=== PATIENT | male | born 1950 | race Two or more races ===

== ENCOUNTER 2017-03-01 22:53 | Inpatient (IN) | payer MEDICARE, OTHER ==
[~2017-03-01] VITALS: Ht 167.6 cm; Wt 94.8 kg
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
--- NOTE | 2017-03-01 23:11 | NUR ---
RADIOLOGY AT BEDSIDE RIGHT SHOULDER XR
--- NOTE | 2017-03-02 00:11 | NUR ---
ms bed 204.2
--- NOTE | 2017-03-02 00:25 | NUR ---
SANDER URBINA (GIRLFRIEND) [phone]
[2017-03-02 00:26] LABS: BASOPHILS % (AUTO) 0.2 % (0.0-2.0); EOSINOPHILS # (AUTO) 0.1 /CMM (0.0-0.7); EOSINOPHILS % (AUTO) 1.3 % (0.0-6.0); HEMATOCRIT 44 % (39-51); HEMOGLOBIN 14.7 g/dL (13.5-17.5); LYMPHOCYTES # (AUTO) 3.6 /CMM (0.8-4.8); LYMPHOCYTES % (AUTO) 32.9 % (20.0-44.0); MEAN CORPUSCULAR HEMOGLOBIN 30 PG (26.0-33.0); MEAN CORPUSCULAR HGB CONC 34 g/dl (31.0-36.0); MEAN CORPUSCULAR VOLUME 89 fL (80-96); MONOCYTES # (AUTO) 0.6 /CMM (0.1-1.30); MONOCYTES % (AUTO) 5.7 % (2.0-12.0); NEUTROPHILS # (AUTO) 6.6 /CMM (1.8-8.9); NEUTROPHILS % (AUTO) 59.9 % (43.0-81.0); PLATELET COUNT (AUTO) 261 /CMM (150-450); RDW COEFFICIENT OF VARIATION 14.3 (11.5-15.0); RED BLOOD CELL COUNT(AUTO) 4.93 MIL/uL (4.5-6.0); WHITE BLOOD COUNT (AUTO) 10.9 K/uL (4.3-11.0)
[2017-03-02] MEDS ORDERED: MORPHINE SULFATE INJ 10 MG/ML DISP.SYRIN ONE (00:28)
[2017-03-02] MEDS ORDERED: ONDANSETRON HCL/PF 4 MG/2 ML VIAL ONE ×2 (00:28→05:42)
[2017-03-02] MEDS ORDERED: MORPHINE SULFATE INJ 2 MG/ML DISP.SYRIN IV ONE (00:30)
[2017-03-02] MEDS ORDERED: ONDANSETRON HCL/PF 4 MG/2 ML VIAL IV ONE (00:30)
--- NOTE | 2017-03-02 00:35 | NUR ---
REPORT GIVEN TO CESAR TAPIA FOR MS BED 204-2
[2017-03-02 00:37] LABS: CALCIUM, SERUM 8.9 mg/dL (8.5-10.1); POTASSIUM 3.9 mmol/L (3.5-5.1)
[2017-03-02 00:38] LABS: INR 0.89 (0.87-1.13); PROTHROMBIN TIME 9.2 SECS (9.5-12.7)
--- NOTE | 2017-03-02 00:49 | NUR ---
PT TRANSFERRED TO [place] BED 204-2 VIA [facility].
[2017-03-02 00:50] VITALS: BP 156/88
[2017-03-02] MEDS ORDERED: MORPHINE SULFATE INJ 4 MG/ML DISP.SYRIN ONE ×2 (01:13→05:41)
[2017-03-02] MEDS: MORPHINE SULFATE INJ 2 MG/ML DISP.SYRIN IV PRN ×2 (01:17→05:45)
[2017-03-02] MEDS ORDERED: ZOLPIDEM TARTRATE 5 MG TABLET ONE (01:27)
[2017-03-02] MEDS ORDERED: MAGNESIUM HYDROXIDE 30 ML UDC PO PRN (01:30)
[2017-03-02] MEDS ORDERED: ACETAMINOPHEN 325 MG TABLET PO PRN (01:30)
[2017-03-02] MEDS ORDERED: ZOLPIDEM TARTRATE 5 MG TABLET PO PRN (01:30)
[2017-03-02] MEDS ORDERED: MAG HYDROX/AL HYDROX/SIMETH 30 ML UDC PO PRN (01:30)
[2017-03-02] MEDS: ONDANSETRON HCL/PF 4 MG/2 ML VIAL IVP PRN ×2 (05:44→20:08)
--- NOTE | 2017-03-02 06:30 | NUR ---
MS RN NOTES AWAKE & RESPONSIVE. NOT IN ANY DISTRESS. NO SOB NOTED. DENIES ANY PAIN OR DISCOMFORT AT THIS TIME. WITH IV-HL PATENT & INTACT. MONITORED ACCORDINGLY. CALL LIGHT WITHIN REACH. BED IN LOWEST POSITION. SR UP X 2 FOR SAFETY. WILL ENDORSE TO NEXT SHIFT.
--- NOTE | 2017-03-02 07:27 | NUR ---
MS RN OPENING NOTES RECEIVED PATIENT IN BED RESTING, RESPONSIVE, A/OX4. NO ACUTE DISTRESS, NO SOB NOTED. DENIES ANY PAIN OR DISCOMFORT. IV SITE INTACT AND PATENT. KEPT PATIENT SAFE AND COMFORTABLE. BED IN LOW POSITION, LOCKED, SIDERAILS UPX2, CALL LIGHT IN REACH. WILL CONTINUE TO MONITOR ACCORDINGLY.
[2017-03-02 07:33] LABS: MAGNESIUM 2.4 mg/dL (1.8-2.4); PHOSPHORUS 4.2 mg/dL (2.5-4.9)
[2017-03-02 08:00] VITALS: BP 134/73
[2017-03-02] MEDS ORDERED: MORPHINE SULFATE INJ 10 MG/ML DISP.SYRIN IV PRN (08:13)
--- NOTE | 2017-03-02 10:30 | NUR ---
RN NOTES FOLLOWED UP WITH COURY FOR ORTHO CONSULT.
--- NOTE | 2017-03-02 10:51 | NUR ---
RN NOTES DR MAYFIELD ON BEDSIDE. NEW ORDERS NOTED AND CARRIED OUT. WILL CONTINUE TO MONITOR.
[2017-03-02] MEDS ORDERED: HYDROCODONE/APAP 10/325MG 1 EA TABLET PO PRN (11:00)
[2017-03-02] MEDS: IV D5/0.45 NACL 1,000 ML IV PRN (11:09)
[2017-03-02] MEDS: HYDROCODONE/APAP 5/325MG 1 EACH TABLET PO PRN (11:22)
--- NOTE | 2017-03-02 13:27 | NUR ---
RN NOTES NISHA MCPHERSON ON BEDSIDE FOR ORTHO CONSULT. NEW ORDERS NOTED AND CARRIED OUT.
[2017-03-02] MEDS: HYDROMORPHONE 1 MG/1 ML DISP.SYRIN IV PRN ×2 (15:53→20:08)
[2017-03-02] MEDS ORDERED: ANESTHESIA TRAY IN PYXIS 1 EA TRAY MC ONE (16:30)
--- NOTE | 2017-03-02 17:01 | NUR ---
RN NOTES BROUGHT PATIENT TO OR ACCOMPANIED BY OR NURSE FOR CLOSE REDUCTION OF RIGHT SHOULDER DISLOCATION.
[2017-03-02] MEDS ORDERED: SUCCINYLCHOLINE CHLORIDE 20 MG/ML VIAL ONE (18:01)
[2017-03-02 18:50] VITALS: BP 142/85
--- NOTE | 2017-03-02 18:50 | NUR ---
RN NOTES PATIENT CAME BACK FROM OR. PATIENT IN STABLE CONDITION. NEW ORDERS NOTED AND CARRIED OUT. WILL CONTINUE TO MONITOR ACCORDINGLY.
--- NOTE | 2017-03-02 19:08 | NUR ---
RN CLOSING NOTES PATIENT IN BED RESTING. S/P CLOSE REDUCTION OF RIGHT SHOULDER, IMMOBILIZER IN PLACE. NO ACUTE DISTRESS, NO SOB NOTED. DENIES PAIN OR DISCOMFORT. IV SITE INTACT AND PATENT. KEPT PATIENT SAFE AND COMFORTABLE. BED IN LOW POSITION, LOCKED, SIDERAILS UPX2, HOB ELEVATED. CALL LIGHT IN REACH. ENDORSED TO NIGHT RN FOR TERRI.
[2017-03-02 20:00] VITALS: BP 145/92
[2017-03-03] MEDS: IV D5/0.45 NACL 1,000 ML IV PRN (02:28)
--- NOTE | 2017-03-03 06:14 | NUR ---
MS RN NOTES AWAKE & RESPONSIVE. NOT IN ANY DISTRESS. NO SOB NOTED. DENIES ANY PAIN OR DISCOMFORT AT THIS TIME. WITH IVF INFUSING WELL. MONITORED ACCORDINGLY. CALL LIGHT WITHIN REACH. BED IN LOWEST POSITION. SR UP X 2 FOR SAFETY. WILL ENDORSE TO NEXT SHIFT.
[2017-03-03 06:16] LABS: BASOPHILS % (AUTO) 0.3 % (0.0-2.0); EOSINOPHILS # (AUTO) 0.2 /CMM (0.0-0.7); EOSINOPHILS % (AUTO) 2.2 % (0.0-6.0); HEMATOCRIT 40 % (39-51); HEMOGLOBIN 13.5 g/dL (13.5-17.5); LYMPHOCYTES # (AUTO) 2.5 /CMM (0.8-4.8); LYMPHOCYTES % (AUTO) 28.1 % (20.0-44.0); MEAN CORPUSCULAR HEMOGLOBIN 30 PG (26.0-33.0); MEAN CORPUSCULAR HGB CONC 34 g/dl (31.0-36.0); MEAN CORPUSCULAR VOLUME 89 fL (80-96); MONOCYTES # (AUTO) 0.7 /CMM (0.1-1.30); MONOCYTES % (AUTO) 7.9 % (2.0-12.0); NEUTROPHILS # (AUTO) 5.5 /CMM (1.8-8.9); NEUTROPHILS % (AUTO) 61.5 % (43.0-81.0); PLATELET COUNT (AUTO) 236 /CMM (150-450); RDW COEFFICIENT OF VARIATION 14.8 (11.5-15.0); RED BLOOD CELL COUNT(AUTO) 4.46 MIL/uL (4.5-6.0); WHITE BLOOD COUNT (AUTO) 8.9 K/uL (4.3-11.0)
[2017-03-03 06:33] LABS: CALCIUM, SERUM 8.4 mg/dL (8.5-10.1); CREATININE 0.9 mg/dL (0.6-1.3); POTASSIUM 4.2 mmol/L (3.5-5.1)
--- NOTE | 2017-03-03 07:10 | NUR ---
MS RN OPENING NOTES RECEIVED PT FROM NIGHTSHIFT NURSE IN STABLE CONDITION. PT IS A/O X4. NO SOB OR SIGNS OF DISTRESS NOTED. BREATHING IS EVEN AND UNLABORED. PT DENIES ANY PAIN TO RIGHT UPPER EXTREMITY AT THIS TIME. PERIPHERAL IV PRESENT ON LEFT AC 18G INFUSING D5 1/2 NS @ 75ML/HR. PT IS TOLERATING INFUSION WELL. NO REDNESS OR SIGNS OF INFILTRATION NOTED. BED IN LOW LOCKED POSITION, SIDE RAILS UP X2, CALL LIGHT WITHIN REACH. WILL CONTINUE TO MONITOR
[2017-03-03 08:00] VITALS: BP 135/76
[2017-03-03] MEDS: HYDROCODONE/APAP 5/325MG 1 EACH TABLET PO PRN (15:18)
--- NOTE | 2017-03-03 15:56 | NUR ---
MS RN DOCUMENT IMPROVEMENT SPECIALIST NOTE PT WAS DISCHARGE FROM UNIT TO [facility] VIA AMBULANCE TRANSPORT IN STABLE CONDITION. ALL DUE MEDS GIVEN AND ORDERS CARRIED OUT ACCORDINGLY. ALL DISCHARGE INSTRUCTIONS DISCUSSED IN DETAIL WITH PT. PT VERBALIZED UNDERSTANDING OF INSTRUCTIONS AND SIGNED AL PAPERWORK INCLUDING BELONGINGS FORM. HE LEFT WITH ALL BELONGINGS IN HAND. IMMOBILIZER REMAINS ON AT TIME OF DISCHARGE.
== END 2017-03-03 15:57 | DRG 563 ==
LOC: ER 22:54 → MEDSG2 03-02 00:34 → MED 03-02 17:22
PROVIDERS: ADMIT Nurse Practitioner Acute Care; ATTEND Internal Medicine
PROC: 0PSCXZZ Reposition Right Humeral Head, External Approach (ICD-10-PCS; principal; 2017-03-02 17:00)
DX: S42.251A Displaced fracture of greater tuberosity of right humerus, initial encounter for closed fracture (principal); M54.30 Sciatica, unspecified side; W19.XXXA Unspecified fall, initial encounter; Z83.3 Family history of diabetes mellitus; Z98.890 Other specified postprocedural states; Y93.89 Activity, other specified; Y92.009 Unspecified place in unspecified non-institutional (private) residence as the place of occurrence of the external cause; S43.014A Anterior dislocation of right humerus, initial encounter
CPT/HCPCS: 36415; 71010-TC; 73020; 73030-TC; 73200-TC; 80048-TC; 83735-TC; 84100-TC; 85025-TC; 85730-TC; 86850-TC; 87081-TC; 97535-TC; A4565; A4606; J0330; J1170; J2270; J2405; J2704; J3490; Z7610

== ENCOUNTER 2019-09-23 11:40 | Emergency (ER) | payer OTHER ==
[~2019-09-23] VITALS: Ht 167.6 cm; Wt 92.5 kg
--- NOTE | 2019-09-23 11:52 | NUR ---
AT BEDSIDE FOR EVAL.
--- NOTE | 2019-09-23 11:53 | NUR ---
BIBS TO ER BED 7. AAOX4. NOT IN RESP DISTRESS. AMBULATORY. CAME IN FOR SOB AND COUGH. PT STATES THAT ITS WAS GETTING WORST IN THE PAST WEEK. HIS MD GAVE HIM 2 MEDICATION, ONE IS AN TAB AND THE OTHER IS MONTELUCAST. MD IS AT BEDSIDE FOR EVAL. ORDERS RECEIVED NOTED AND CARRIED OUT.
--- NOTE | 2019-09-23 12:06 | NUR ---
EKG AT BEDSIDE
[2019-09-23 13:07] LABS: BASOPHILS # (AUTO) 0.1 /CMM (0.0-0.2); EOSINOPHILS % (AUTO) 5.6 % (0.0-6.0); HEMATOCRIT 43 % (39-51); LYMPHOCYTES # (AUTO) 1.5 /CMM (0.8-4.8); LYMPHOCYTES % (AUTO) 18.6 % (20.0-44.0); MEAN CORPUSCULAR HGB CONC 33 g/dl (31.0-36.0); MEAN CORPUSCULAR VOLUME 86 fL (80-96); MONOCYTES # (AUTO) 0.6 /CMM (0.1-1.30); MONOCYTES % (AUTO) 7.8 % (2.0-12.0); NEUTROPHILS # (AUTO) 5.4 /CMM (1.8-8.9); PLATELET COUNT (AUTO) 349 /CMM (150-450); RED BLOOD CELL COUNT(AUTO) 5.01 MIL/uL (4.5-6.0)
[2019-09-23 13:17] LABS: C-REACTIVE PROTEIN 4.4 mg/dL (0.0-0.9)
[2019-09-23 13:29] LABS: CALCIUM, SERUM 8.5 mg/dL (8.5-10.1); CARBON DIOXIDE 26 mmol/L (21-32); CHLORIDE 99 mmol/L (98-107); GLUCOSE 101 mg/dL (74-106); POTASSIUM 4.3 mmol/L (3.5-5.1); SODIUM SERUM 135 mmol/L (136-145); UREA NITROGEN, BLOOD 13 mg/dL (7-18)
[2019-09-23 13:33] LABS: ALANINE AMINOTRANSFERASE 38 U/L (12-78); ALBUMIN 3.4 g/dL (3.4-5.0); ALKALINE PHOSPHATASE 79 U/L (46-116); ASPARTATE AMINOTRANSFERASE 25 U/L (15-37); B-TYPE NATRIURETIC PEPTIDE 12 PG/ML (0-125); BILIRUBIN,TOTAL 0.5 mg/dL (0.2-1.0); TOTAL PROTEIN, SERUM 7.3 g/dL (6.4-8.2)
[2019-09-23 13:39] LABS: D-DIMER 3.77 mg/L(FEU (0.17-0.50)
[2019-09-23 13:52] LABS: CREATINE KINASE, TOTAL 76 U/L (39-308); FERRITIN 38 ng/mL (8-388)
[2019-09-23 13:54] VITALS: BP 135/65
--- NOTE | 2019-09-23 13:54 | NUR ---
Patient discharged to home in stable condition. Written and verbal after care instructions given. Patient verbalizes understanding of instruction.IV removed. Catheter intact and site benign. Pressure and 4x4 applied to site. No bleeding noted. Pt ambulatory with a steady gait
--- NOTE | 2019-09-24 20:38 | NUR ---
LAB CALLED, PT'S COVID 19 RESULT IS NEGATIVE.
--- NOTE | 2019-09-24 20:39 | NUR ---
CALLED PT TO INFORM THEM OF A NEGATIVE COVID 19.
== END 2019-09-23 13:55 | disposition home or self-care (01) ==
LOC: ER 11:42
DX: J18.9 Pneumonia, unspecified organism (principal); Z20.828 Contact with and (suspected) exposure to other viral communicable diseases
CPT/HCPCS: 36415; 71045; 80053; 82550; 82728; 83605; 83615; 83880; 84145; 84484; 85025; 85378; 85385; 86140; 87040 ×2; 93005; 99285; U0003

== ENCOUNTER 2019-09-29 09:43 | Emergency (ER) | payer OTHER ==
[~2019-09-29] VITALS: Ht 167.6 cm; Wt 90.3 kg
--- NOTE | 2019-09-29 09:51 | NUR ---
CAME FOR WORSENING SOB, UNRELIEVED W/ MEDS X 2 WEEKS, TESTED NEGATIVE FOR COVID19 A WEEK AGO. TO ER BED 6, HOOKED TO MONITOR AND POX, PATIENT O2 SAT AT ROOM AIR AT 89%, CHANGED TO HOSP GOWN, WARM BLANKET PROVIDED, PATIENT AAO x 4, DR CARLSON AT BEDSIDE.
[2019-09-29 10:14] LABS: BASOPHILS # (AUTO) 0.1 /CMM (0.0-0.2); BASOPHILS % (AUTO) 0.8 % (0.0-2.0); EOSINOPHILS % (AUTO) 6.5 % (0.0-6.0); HEMATOCRIT 42 % (39-51); HEMOGLOBIN 13.7 g/dL (13.5-17.5); LYMPHOCYTES % (AUTO) 21.7 % (20.0-44.0); MEAN CORPUSCULAR HGB CONC 33 g/dl (31.0-36.0); MEAN CORPUSCULAR VOLUME 86 fL (80-96); MONOCYTES # (AUTO) 0.8 /CMM (0.1-1.30); MONOCYTES % (AUTO) 8.1 % (2.0-12.0); NEUTROPHILS # (AUTO) 5.9 /CMM (1.8-8.9); NEUTROPHILS % (AUTO) 62.9 % (43.0-81.0); PLATELET COUNT (AUTO) 382 /CMM (150-450); RED BLOOD CELL COUNT(AUTO) 4.84 MIL/uL (4.5-6.0); WHITE BLOOD COUNT (AUTO) 9.4 K/uL (4.3-11.0)
[2019-09-29 10:18] LABS: CALCIUM, SERUM 8.7 mg/dL (8.5-10.1); CARBON DIOXIDE 26 mmol/L (21-32); CHLORIDE 99 mmol/L (98-107); GLUCOSE 104 mg/dL (74-106); POTASSIUM 3.9 mmol/L (3.5-5.1); SODIUM SERUM 136 mmol/L (136-145); UREA NITROGEN, BLOOD 8 mg/dL (7-18)
[2019-09-29 10:34] LABS: ALANINE AMINOTRANSFERASE 27 U/L (12-78); ALBUMIN 3.4 g/dL (3.4-5.0); ALKALINE PHOSPHATASE 78 U/L (46-116); ASPARTATE AMINOTRANSFERASE 25 U/L (15-37); B-TYPE NATRIURETIC PEPTIDE 30 PG/ML (0-125); BILIRUBIN,TOTAL 0.5 mg/dL (0.2-1.0); TOTAL PROTEIN, SERUM 7.4 g/dL (6.4-8.2)
--- NOTE | 2019-09-29 10:35 | NUR ---
BARRETT VIRUS SWAB DONE, SENT TO LAB
[2019-09-29 10:48] LABS: D-DIMER 4.53 mg/L(FEU (0.17-0.50)
[2019-09-29 10:59] LABS: CREATINE KINASE, TOTAL 83 U/L (39-308); FERRITIN 37 ng/mL (8-388)
[2019-09-29 11:04] LABS: C-REACTIVE PROTEIN 4.6 mg/dL (0.0-0.9)
--- NOTE | 2019-09-29 12:55 | NUR ---
CALLED DR MAHAN LEFT VOICEMAIL. Addendum: 09/29/19 at [address] MAHAN [phone]
[2019-09-29 12:59] LABS: APPEARANCE,URINE Clear (CLEAR); BILIRUBIN,URINE Negative (NEGATIVE); BLOOD, URINE Negative Ery/uL (NEGATIVE); COLOR,URINE Yellow (YELLOW); KETONES,URINE Negative (NEGATIVE); LEUKOCYTE ESTERASE ,URINE Negative (NEGATIVE); NITRITE, URINE Negative (NEGATIVE); PROTEIN,URINE Negative (NEGATIVE); UGLUCOSE Negative (NEGATIVE); UROBILINOGEN,URINE 0.2 EU/dL (0.2)
--- NOTE | 2019-09-29 13:20 | NUR ---
JOANNA FROM [facility] CALLED PT IS TO GO TO [facility] IN [place] ROOM 240-A GIVE REPORT TO [phone].ASK FOR NUTSING SUP. ACCEPTING MD IS KALLI. CELL IS [phone]. CALL JOANNA WHEN THE MD CALL EACH OTHER [phone]
[2019-09-29] MEDS ORDERED: IOHEXOL-350 100 ML VIAL IV ONE (13:21)
[2019-09-29] MEDS ORDERED: IV NS 0.9% 250 ML IV ONE (13:21)
[2019-09-29] MEDS ORDERED: CT SWABBABLE VALVE TRANS SET 1 EA INFUS.SET MC ONE (13:21)
--- NOTE | 2019-09-29 13:50 | NUR ---
DR MAHAN ACCEPTED PT AT [facility]
--- NOTE | 2019-09-29 14:11 | NUR ---
REPORT GIVEN TO DOROTHEA [phone] OF [facility].
--- NOTE | 2019-09-29 14:26 | NUR ---
[facility] ETA 30-45MIN
[2019-09-29 14:43] VITALS: BP 134/79
--- NOTE | 2019-09-29 15:26 | NUR ---
PICKED UP BY [facility] IN STABLE CONFITION GOING TO [facility]. CLINICALS PROVIDE TO BE GIVEN TO THE HOSPITAL.
--- NOTE | 2019-10-01 00:39 | NUR ---
LAB CALLED REGARDING COVID (-) RESULT.
== END 2019-09-29 15:28 | disposition short-term general hospital (02) ==
LOC: ER 09:51
DX: R09.02 Hypoxemia (principal); R05 Cough; Z20.828 Contact with and (suspected) exposure to other viral communicable diseases; M54.30 Sciatica, unspecified side; R79.82 Elevated C-reactive protein (CRP); R94.2 Abnormal results of pulmonary function studies
CPT/HCPCS: 36415; 71045; 71275; 80053; 81001; 82550; 82728; 83605; 83615; 83880; 84145; 84484; 85025; 85378; 85385; 85730; 86140; 87040; 87086; 93005; 99285; J7050; Q9967; U0003; 81000-TC